=== PATIENT | female | born 1930 | race Caucasian/White ===

== ENCOUNTER → 2019-03-02 | Outpatient (CLI) | payer MEDICARE, OTHER ==
--- NOTE | 2019-03-02 13:20 | RAD ---
PROCEDURE: KNEE RIGHT 2V STUDY DATE: 03/02/2019 CLINICAL INDICATION / HISTORY: Right knee pain. TECHNIQUE: AP, lateral, and oblique views of the right knee. COMPARISON: FINDINGS: The osseous structures are intact. The articular surfaces are smooth. The joint space is maintained. No intra-articular loose bodies. The alignment is within normal limits. The soft tissues are unremarkable. No obvious joint effusion. No radio-opaque foreign bodies are identified. IMPRESSION: No fracture or dislocation is identified. Electronically signed by: Jon Potter MD (03/02/2019 1:18 PM) [facility]
== END | disposition home or self-care (01) ==
LOC: PMG 12:30
PROVIDERS: ATTEND Family Medicine
DX: M25.561 Pain in right knee (principal)
CPT/HCPCS: 73560